=== PATIENT | female | born 1965 | race Caucasian/White ===

== ENCOUNTER 2017-06-19 19:58 | Observation (INO) | payer OTHER ==
--- NOTE | 2017-06-19 20:42 | ED PDOC ---
HPI: General Adult Time Seen by Provider: 06/19/17 20:28 Chief Complaint (Nursing): Weakness/Neurological Deficit Chief Complaint (Provider): headache, facial/hand numbness History Per: Patient, Family History/Exam Limitations: no limitations Onset/Duration Of Symptoms: Hrs (12) Current Symptoms Are (Timing): Better Additional History Per: Patient Additional Complaint(s): 52 y/o female no past medical history presents with facial and right hand numbness x 12 hours. Patient states she woke up with numbness to right hand, as the day progressed she noted similar feeling to whole face, which she described as feeling "swollen", with associated mild right-sided headache. Patient states numbness to right hand has improved. Denies fever, dizziness, extremity weakness, vision changes, chest pain, shortness of breath, palpitations, abdominal pain, leg pain/swelling. Patient notes similar numbness sensation 2 right heel on and off x 2 months. Past Medical History Reviewed: Historical Data, Nursing Documentation, Vital Signs Vital Signs: Last Vital Signs Temp 98 F 06/20/17 03:23 Pulse 59 L 06/20/17 03:23 Resp 18 06/20/17 03:23 BP 116/71 06/20/17 03:23 Pulse Ox 100 06/20/17 03:23 - Medical History PMH: No Chronic Diseases - Surgical History Surgical History: - Family History Family History: States: No Known Family Hx - Living Arrangements Living Arrangements: With Family - Social History Current smoker - smoking cessation education provided: No Alcohol: Social Drugs: Denies - Home Medications Home Medications: Ambulatory Orders Medication Instructions Recorded Gabapentin [Neurontin] 1 cap PO TID PRN 06/19/17 - Allergies Allergies/Adverse Reactions: Allergies Allergy/AdvReac Type Severity Reaction Status Date / Time Penicillins Allergy RASH Verified 06/19/17 20:08 Review of Systems ROS Statement: Except As Marked, All Systems Reviewed And Found Negative Neurological: Positive for: Numbness, Headache Physical Exam - Reviewed Nursing Documentation Reviewed: Yes Vital Signs Reviewed: Yes - Physical Exam Appears: Positive for: Well, Non-toxic, No Acute Distress Head Exam: Positive for: ATRAUMATIC, NORMAL INSPECTION, NORMOCEPHALIC Skin: Positive for: Normal Color Eye Exam: Positive for: Normal appearance ENT: Positive for: Normal ENT Inspection Cardiovascular/Chest: Positive for: Regular Rate, Rhythm Respiratory: Positive for: Normal Breath Sounds Gastrointestinal/Abdominal: Positive for: Normal Exam Back: Positive for: Normal Inspection Extremity: Positive for: Normal ROM Neurologic/Psych: Positive for: Alert, Oriented, Motor/Sensory Deficits ( decreased sensation RUE compared to LUE; FROM. Motor strength intact and equal b/l UE). Negative for: Facial Droop - Laboratory Results Result Diagrams: 06/19/17 21:00 06/19/17 21:00 - ECG ECG: Positive for: Viewed By Me (reviewed by ED attending) ECG Rhythm: Positive for: Sinus Rhythm O2 Sat by Pulse Oximetry: 98 Pulse Ox Interpretation: Normal - Radiology X-Ray: Viewed By Me X-Ray Interpretation: No Acute Disease - Progress ED Course And Treament: labs, ekg, ct head EXAM: CT Head Without Intravenous Contrast CLINICAL HISTORY: The patient is a 52 years female; Pain and signs and symptoms; Weakness, extremity and weakness, facial; Right; Headache; Headache not specified; Additional info: Headache, facial numbness. Sent phy. Doc. 06/19/2017 8:38 PM TECHNIQUE: Axial computed tomography images of the head/brain without intravenous contrast. All CT scans at this facility use one or more dose reduction techniques, viz.: automated exposure control; ma/kV adjustment per patient size (including targeted exams where dose is matched to indication; i.e. head); or iterative reconstruction technique. Coronal and sagittal reformatted images were created and reviewed. COMPARISON: No relevant prior studies available. FINDINGS: Brain: Areas of decreased attenuation noted within the periventricular and subcortical white matter likely related to chronic microangiopathic ischemic changes given the patient's stated age.Streak artifact limits evaluation of the skull base. No evidence of acute intracranial hemorrhage. Correlate clinically. Ventricles: Unremarkable. No ventriculomegaly. Bones/joints: See above. Soft tissues: Unremarkable. Sinuses: Unremarkable as visualized. No acute sinusitis. Mastoid air cells: Unremarkable as visualized. No mastoid effusion. IMPRESSION: Streak artifact limits evaluation of the skull base. No evidence of acute intracranial hemorrhage. CT can miss an acute nonhemorrhagic CVA. It should be noted that acute strokes may be initially radiologically occult on CT. If the patient is having persistent stroke like symptomatology, then MRI may be beneficial. Case discussed with Dr. Garcia, Neurologist on-call; recommends admission for MRA head/neck, asa 81mg PO dose, IV NS. Will consult in am. CAse discussed with FP resident on-call for admission. Disposition - Clinical Impression Clinical Impression: Headache, Paresthesias - Patient ED Disposition Is Patient to be Admitted: Yes - Disposition Disposition Time: 22:00 Condition: FAIR
[2017-06-19 21:10] LABS: BASO # 0.1 K/uL (0.0-0.2); BASO % 0.8 % (0.0-2.0); EOS # 0.2 K/uL (0.0-0.7); EOS % 2.5 % (0.0-4.0); HEMATOCRIT 43.2 % (34.0-47.0); LYMPH # 2.5 K/uL (1.0-4.3); LYMPH % 36.6 % (20.0-40.0); MEAN CELL VOLUME 91.6 fl (81.0-99.0); MEAN CORPUSCULAR HEMOGLOBIN 30.3 pg (27.0-31.0); MEAN CORPUSCULAR HGB CONC 33.1 g/dL (33.0-37.0); MEAN PLATELET VOLUME 9.6 fl (7.2-11.7); MONO # 0.5 K/uL (0.0-0.8); MONO % 7.6 % (0.0-10.0); NEUT # 3.6 K/uL (1.8-7.0); NEUT % 52.5 % (50.0-75.0); RED CELL DISTRIBUTION WIDTH 13.7 % (11.5-14.5); WHITE BLOOD COUNT 6.9 K/uL (4.8-10.8)
[2017-06-19 21:18] LABS: ALB/GLOB RATIO 1.4 (1.0-2.1); ALKALINE PHOSPHATASE 94 U/L (38-126); ALT/SGPT 36 U/L (9-52); AST/SGOT 25 U/L (14-36); BILIRUBIN,TOTAL 0.2 mg/dl (0.2-1.3); BLOOD UREA NITROGEN 8 mg/dl (7-17); CALCIUM 9.2 mg/dL (8.4-10.2); CARBON DIOXIDE 27 mmol/L (22-30); CHLORIDE 105 mmol/L (98-107); GFR AFRICAN-AMERICAN > 60; GLUCOSE,RANDOM 98 mg/dL (65-105); POTASSIUM 3.9 MMOL/L (3.6-5.0); SODIUM 142 mmol/l (132-148); TOTAL PROTEIN 7.7 G/DL (6.3-8.2)
[2017-06-19] MEDS ORDERED: Sodium Chloride 0.9% 1,000 ML IV STA (22:06)
--- NOTE | 2017-06-19 23:13 | CP.PCM.HP ---
History of Present Illness - History of Present Illness History of Present Illness: CC: Right hand numbness 52F right-hand dominant p/w onset of RIGHT hand feeling "asleep" since about 7am this morning, only the hand and denies any loss of strength. She reports that later in the day she began feeling that her RIGHT side of the face felt "asleep" but denies similar feeling in the shoulder/arm of affected side. With this facial numbness she also had amina-oral numbness/tingling but denies visual/ hearing changes or speech abnormality. She says she had a prior incident that involved her RIGHT heel for which she was prescribed Gabapentin 300mg, PO, TID and it gradually improved. Currently her symptoms have improved "a little". Otherwise, she denies SOB, chest pain/palpitations, abd pain, constipation/ diarrhea, dysuria PMH: None PSH: Lasik eye surgery, C-sxn x1, Rt breast cystectomy Denies smoke/etOH/drugs SCARLETT: Vitamin D, Gabapentin ALL: PCN (hives) ED COURSE VSS: 36.7- 60- 154/77- 18- 98% CBC: WNL CMP: WNL Head CT: no acute ICH or mass effect EKG: NSR CXR: pending official read, but no acute processes Neuro Consult (Dr Rdz): MRA Head/Neck, 81mg ASA Present on Admission - Present on Admission Any Indicators Present on Admission: No Review of Systems - Review of Systems All systems: reviewed and no additional remarkable complaints except - Constitutional Constitutional: Headache - Neurological Neurological: Numbness (RIGHT hand, RIGHT > LEFT face), Tingling (perioral and nose) Past Patient History - Past Social History Alcohol: Social Drugs: Denies - PSYCHIATRIC Hx Substance Use: No - SURGICAL HISTORY Hx Surgeries: No Meds Allergies/Adverse Reactions: Allergies Allergy/AdvReac Type Severity Reaction Status Date / Time Penicillins Allergy RASH Verified 06/19/17 20:08 Physical Exam - Constitutional Appears: Well, Non-toxic, No Acute Distress - Head Exam Head Exam: ATRAUMATIC, NORMAL INSPECTION - Eye Exam Eye Exam: EOMI, Normal appearance, PERRL. absent: Nystagmus Pupil Exam: PERRL - ENT Exam ENT Exam: Mucous Membranes Moist, Normal Exam - Neck Exam Neck exam: Positive for: Full Rom, Normal Inspection. Negative for: Lymphadenopathy - Respiratory Exam Respiratory Exam: Clear to Auscultation Bilateral, NORMAL BREATHING PATTERN. absent: Rhonchi, Wheezes - Cardiovascular Exam Cardiovascular Exam: REGULAR RHYTHM, +S1, +S2 - GI/Abdominal Exam GI & Abdominal Exam: Normal Bowel Sounds, Soft. absent: Tenderness - Extremities Exam Extremities exam: Positive for: full ROM, normal capillary refill, normal inspection, pedal pulses present. Negative for: pedal edema - Neurological Exam Neurological exam: Alert, CN II-XII Intact, Normal Gait, Oriented x3, Reflexes Normal - Psychiatric Exam Psychiatric exam: Normal Affect, Normal Mood - Skin Skin Exam: Dry, Intact, Normal Color, Warm Results - Vital Signs Recent Vital Signs: Last Vital Signs Temp 36.7 C 06/19/17 20:09 Pulse 60 06/19/17 20:09 Resp 18 06/19/17 20:09 BP 154/77 H 06/19/17 20:09 Pulse Ox 98 06/19/17 22:13 - Labs Result Diagrams: 06/19/17 21:00 06/19/17 21:00 Labs: Laboratory Results - last 24 hr 06/19/17 06/19/17 21:00 21:00 WBC 6.9 RBC 4.72 Hgb 14.3 Hct 43.2 MCV 91.6 MCH 30.3 MCHC 33.1 RDW 13.7 Plt Count 201 MPV 9.6 Neut % (Auto) 52.5 Lymph % (Auto) 36.6 [place] % (Auto) 7.6 Eos % (Auto) 2.5 Baso % (Auto) 0.8 Neut # 3.6 Lymph # 2.5 [place] # 0.5 Eos # 0.2 Baso # 0.1 Sodium 142 Potassium 3.9 Chloride 105 Carbon Dioxide 27 Anion Gap 15 BUN 8 Creatinine 0.6 L Est GFR ( Amer) > 60 Est GFR (Non-Af Amer) > 60 Random Glucose 98 Calcium 9.2 Total Bilirubin 0.2 AST 25 ALT 36 Alkaline Phosphatase 94 Total Protein 7.7 Albumin 4.5 Globulin 3.2 Albumin/Globulin Ratio 1.4 Assessment & Plan (1) Neuropathy Assessment and Plan: Etiology unclear, but given the absence of radicular symptoms, dermatomal distribution, or cerebrovascular region distribution would keep MS, DM, possibly B12 deficiency in the differential. - Neurology Consult (Dr Rdz): Will see 06/20/2017, MRA Head/Neck - VitB12, ESR/CRP, RPR, ANCA, Lipid Panel, TSH, HgbA1C Status: Acute (2) Elevated blood pressure reading Assessment and Plan: No comparable readings. - Monitor BP - Start medication as indicated Status: Acute (3) DVT prophylaxis Assessment and Plan: Lovenox 40mg, SC, Daily Status: Acute
[2017-06-20 01:42] LABS: THYROID STIMULATING HORMONE 2.83 mIU/ML (0.46-4.68)
[2017-06-20 04:43] VITALS: O2SAT 98
[2017-06-20] MEDS ORDERED: Influenza Vaccine 18yr & older 0.5 ML/45 MCG SYR IM ONE (06:00)
--- NOTE | 2017-06-20 08:19 | CP.PCM.PN ---
Subjective - Date & Time of Evaluation Date of Evaluation: 06/20/17 Time of Evaluation: 07:15 - Subjective Subjective: Pt seen and examined at bedside today. She was resting comfortably. Symptoms: R foot parasthesia: plantar aspect, began 2 months ago, intermittent ( day on day off) occurring intermittently, exacerbated with prolonged ambulation , denies loss of function. R hand parasthesia began yesterday around 7 AM independent of other symptoms. Symptoms lasted briefly for a few minutes and spontaneously resolved. Denies loss of hand function. Denies associated headaches. generalized Facial parasthesia with no focal origin: started at yesterday afternoon independent of other symptoms. Symptoms also spontaneously resolved. no asociated headache, nausea, vomiting, dizziness, weakness, blurred vision. Denies recent/2 month history of stressors, illness, changes in life, travel outside of the country. Denies sick contacts. Shares of PCP at [address] [place] [address]; last visit in April: shares of reviewing bloodwork and wnl. Denies personal history of: neurological, psychiatric symptoms. 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 Objective - Vital Signs/Intake and Output Vital Signs (last 24 hours): Temp Pulse Resp BP Pulse Ox 98 F 59 L 18 116/71 98 06/20/17 03:23 06/20/17 03:23 06/20/17 03:23 06/20/17 03:23 06/20/17 04:43 - Medications Medications: Current Medications Enoxaparin Sodium (Lovenox) 40 mg SC DAILY GERARDO PRN Reason: Protocol - Labs Labs: 06/19/17 21:00 06/19/17 21:00 - Constitutional Appears: Well, No Acute Distress - Head Exam Head Exam: ATRAUMATIC, NORMAL INSPECTION Additional comments: No facial droop. - Eye Exam Eye Exam: EOMI, Normal appearance, PERRL Pupil Exam: NORMAL ACCOMODATION, PERRL - ENT Exam ENT Exam: Mucous Membranes Moist, Normal Exam - Neck Exam Neck Exam: Full ROM, Normal Inspection - Respiratory Exam Respiratory Exam: Clear to Ausculation Bilateral, NORMAL BREATHING PATTERN - Cardiovascular Exam Cardiovascular Exam: REGULAR RHYTHM, +S2 - GI/Abdominal Exam GI & Abdominal Exam: Soft, Normal Bowel Sounds - Extremities Exam Extremities Exam: Full ROM, Normal Inspection - Back Exam Back Exam: NORMAL INSPECTION - Neurological Exam Neurological Exam: Alert, Awake, CN II-XII Intact, Normal Gait, Oriented x3 Neuro motor strength exam: Left Upper Extremity: 5, Right Upper Extremity: 5, Left Lower Extremity: 5, Right Lower Extremity: 5 Additional comments: Ambulating well with no abnormal gait - Psychiatric Exam Psychiatric exam: Normal Affect, Normal Mood - Skin Skin Exam: Normal Color, Warm Assessment and Plan - Assessment and Plan (Free Text) Assessment: Pt is AAOx3. Asymptomatic for presenting symptoms/concerns. Plan: 1) R foot, R hand, Facial parasthesias -currently asymptomatic -Continue ASA 81mg -Consulted Dr. Rdz: pending MRA head and neck -Pending CRP, HbA1c, ANCA, RPR, ECG, UPT, MAXIMINO, HIV 2) DVT prophylaxis -Lovenox 40mg -Ambulating Earl Monaslve, PGY1
--- NOTE | 2017-06-20 08:37 | CT ---
PROCEDURE: CT HEAD WITHOUT CONTRAST. HISTORY: headache, facial numbness COMPARISON: None available. TECHNIQUE: Axial computed tomography images were obtained through the head/brain without intravenous contrast. Radiation dose: Total exam DLP = 831 mGy-cm. This CT exam was performed using one or more of the following dose reduction techniques: Automated exposure control, adjustment of the mA and/or kV according to patient size, and/or use of iterative reconstruction technique. FINDINGS: HEMORRHAGE: No intracranial hemorrhage. BRAIN: No mass effect or edema. Scattered focal lucencies in the subcortical and periventricular white matter suggestive for chronic microvascular ischemic change. Small focal hypodensity measuring 4.9 millimeters seen within the right inferior basal ganglia best seen on series 4, image 20. This may represent a small lacunar infarct. Correlation with MRI may be helpful to better determine chronicity if clinically indicated. VENTRICLES: Unremarkable. No hydrocephalus. CALVARIUM: Unremarkable. PARANASAL SINUSES: Unremarkable as visualized. No significant inflammatory changes. MASTOID AIR CELLS: Unremarkable as visualized. No inflammatory changes. OTHER FINDINGS: Streak artifact limits evaluation of the skullbase. IMPRESSION: Streak artifact limits evaluation of the skullbase. Small focal hypodensity measuring 4.9 millimeters seen within the right inferior basal ganglia best seen on series 4, image 20. This may represent a small lacunar infarct. Correlation with MRI may be helpful to better determine chronicity if clinically indicated. Chronic microvascular ischemic change. No evidence of acute intracranial hemorrhage. If focal neurologic deficit persists, consider further evaluation with MRI. These findings were preliminarily reported at 9:23 p.m. on 06/19/[address] Verna Cortes from [facility].
[2017-06-20] MEDS ORDERED: Enoxaparin 40 mg Syringe SC SCH (09:00)
--- NOTE | 2017-06-20 10:35 | MRI ---
PROCEDURE: MR Angiography of the neck without contrast HISTORY: headache, facial/right hand paresthesia COMPARISON: None available. TECHNIQUE: 3D [id number] angiography of the neck was performed. Rotating maximum intensity projection images of the cervical carotid and vertebral arteries were generated. The origins of the common carotid arteries were not visualized, which is a limitation inherent to the non-contrast time of flight technique. FINDINGS: RIGHT CAROTID ARTERIES: Common Carotid Artery: Normal. Carotid Bifurcation: Normal. Internal Carotid Artery:Normal. External Carotid Artery (proximal branches): Normal. LEFT CAROTID ARTERIES: Common Carotid Artery: Normal. Carotid Bifurcation: Normal. Internal Carotid Artery:Normal. External Carotid Artery (proximal branches): Normal. VERTEBRAL ARTERIES: Right Vertebral Artery: Normal. Left Vertebral Artery: Normal. OTHER FINDINGS: None. IMPRESSION: Normal MR Angiography of the neck.
--- NOTE | 2017-06-20 10:35 | MRI ---
PROCEDURE: Magnetic Resonance Angiography Brain HISTORY: headache, facial, right hand paresthesia COMPARISON: None available. TECHNIQUE: 3D time of flight MR angiography of the intracranial arteries was performed. Rotating maximum intensity projection images were generated. FINDINGS: INTERNAL CAROTID ARTERIES: Unremarkable. The skull base, petrous, cavernous and supraclinoid segments are bilaterally widely patient. ANTERIOR CEREBRAL ARTERIES: Unremarkable. A1 and A2 segments are widely patent. Smaller distal branches unremarkable, as visualized. MIDDLE CEREBRAL ARTERIES: Unremarkable. M1 and M2 segments are widely patent. Perisylvian branches grossly symmetric. POSTERIOR CIRCULATION: Basilar Artery: Unremarkable. Distal Vertebral Arteries: Unremarkable. Posterior Cerebral Arteries: Unremarkable. Posterior Inferior Cerebellar Arteries: The right PICA is unremarkable. 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 OTHER FINDINGS: None. IMPRESSION: Unremarkable MR angiography of the brain.
--- NOTE | 2017-06-20 11:24 | RAD ---
HISTORY: admit COMPARISON: No prior. TECHNIQUE: Chest PA and lateral FINDINGS: LUNGS: The lungs are hyperinflated and there is peribronchial thickening with chronic changes in both lungs. No lobar pneumonia. PLEURA: No significant pleural effusion identified. No pneumothorax apparent. CARDIOVASCULAR: Normal. OSSEOUS STRUCTURES: No significant abnormalities. VISUALIZED UPPER ABDOMEN: Normal. OTHER FINDINGS: None. IMPRESSION: No active pulmonary disease. COPD.
[2017-06-20 12:18] VITALS: BP 109/69; PULSE 60; RESP 18; TEMP 98.1
--- NOTE | 2017-06-20 12:30 | CP.PCM.CON ---
History of Present Illness - History of Present Illness History of Present Illness: Mrs. Reddy is a 52-year-old woman with no significant past medical history, but has had previous episodes of neurologic changes that included right facial numbness, right hand numbness and headache. She was given gabapentin for this in the past and it helped. She developed similar symptoms yesterday. Today, her symptoms are gone. She did not have headache, numbness or changes in mental status. No difficulty with speech or vision, no weakness or other sensory changes. Review of Systems - Review of Systems All systems: reviewed and no additional remarkable complaints except Past Patient History - Past Medical History & Family History Past Medical History?: Yes - Past Social History Alcohol: Social Drugs: Denies - CARDIAC Hx Cardiac Disorders: No - PULMONARY Hx Respiratory Disorders: No - NEUROLOGICAL Hx Neurological Disorder: No - HEENT Hx HEENT Problems: No - RENAL Hx Chronic Kidney Disease: No - ENDOCRINE/METABOLIC Hx Endocrine Disorders: No - HEMATOLOGICAL/ONCOLOGICAL Hx Blood Disorders: No Hx AIDS: No Hx Human Immunodeficiency Virus (HIV): No - INTEGUMENTARY Hx Dermatological Problems: No - MUSCULOSKELETAL/RHEUMATOLOGICAL Hx Musculoskeletal Disorders: No Hx Falls: No - GASTROINTESTINAL Hx Gastrointestinal Disorders: No - GENITOURINARY/GYNECOLOGICAL Hx Genitourinary Disorders: No - PSYCHIATRIC Hx Psychophysiologic Disorder: No Hx Substance Use: No - SURGICAL HISTORY Hx Surgeries: Yes Hx Section: Yes (x1) Hx Eye Surgery: Yes (Lasik) Other/Comment: Right breast cystectomy - ANESTHESIA Hx Anesthesia: Yes Hx Anesthesia Reactions: No Meds Allergies/Adverse Reactions: Allergies Allergy/AdvReac Type Severity Reaction Status Date / Time Penicillins Allergy RASH Verified 06/19/17 20:08 - Medications Medications: Current Medications Enoxaparin Sodium (Lovenox) 40 mg SC DAILY GERARDO PRN Reason: Protocol Last Admin: 06/20/17 09:43 Dose: 40 mg Physical Exam - Constitutional Appears: Well - Head Exam Head Exam: ATRAUMATIC, NORMAL INSPECTION, NORMOCEPHALIC - Eye Exam Eye Exam: EOMI, Normal appearance, PERRL - ENT Exam ENT Exam: Mucous Membranes Moist, Normal Exam - Neck Exam Neck exam: Positive for: Normal Inspection - Respiratory Exam Respiratory Exam: Clear to Auscultation Bilateral, NORMAL BREATHING PATTERN - Cardiovascular Exam Cardiovascular Exam: REGULAR RHYTHM, +S1, +S2 - GI/Abdominal Exam GI & Abdominal Exam: Normal Bowel Sounds, Soft. absent: Tenderness - Rectal Exam Rectal Exam: Deferred - Extremities Exam Extremities exam: Positive for: normal inspection - Back Exam Back exam: NORMAL INSPECTION - Neurological Exam Neurological exam: Alert, CN II-XII Intact, Normal Gait, Oriented x3, Reflexes Normal - Psychiatric Exam Psychiatric exam: Normal Affect, Normal Mood - Skin Skin Exam: Dry, Intact, Normal Color, Warm Results - Vital Signs Recent Vital Signs: Last Vital Signs Temp 98.2 F 06/20/17 08:00 Pulse 66 06/20/17 08:00 Resp 20 06/20/17 08:00 BP 111/71 06/20/17 08:00 Pulse Ox 98 06/20/17 08:00 - Labs Result Diagrams: 06/19/17 21:00 06/19/17 21:00 Labs: Laboratory Results - last 24 hr 06/19/17 06/19/17 06/19/17 21:00 21:00 21:16 WBC 6.9 RBC 4.72 Hgb 14.3 Hct 43.2 MCV 91.6 MCH 30.3 MCHC 33.1 RDW 13.7 Plt Count 201 MPV 9.6 Neut % (Auto) 52.5 Lymph % (Auto) 36.6 [place] % (Auto) 7.6 Eos % (Auto) 2.5 Baso % (Auto) 0.8 Neut # 3.6 Lymph # 2.5 [place] # 0.5 Eos # 0.2 Baso # 0.1 ESR Sodium 142 Potassium 3.9 Chloride 105 Carbon Dioxide 27 Anion Gap 15 BUN 8 Creatinine 0.6 L Est GFR ( Amer) > 60 Est GFR (Non-Af Amer) > 60 POC Glucose (mg/dL) 90 Random Glucose 98 Calcium 9.2 Total Bilirubin 0.2 AST 25 ALT 36 Alkaline Phosphatase 94 C-React Prot High Sens Total Protein 7.7 Albumin 4.5 Globulin 3.2 Albumin/Globulin Ratio 1.4 Triglycerides Cholesterol LDL Cholesterol Direct HDL Cholesterol Vitamin B12 TSH 3rd Generation 06/19/17 06/20/17 06/20/17 23:55 00:40 00:40 WBC RBC Hgb Hct MCV MCH MCHC RDW Plt Count MPV Neut % (Auto) Lymph % (Auto) [place] % (Auto) Eos % (Auto) Baso % (Auto) Neut # Lymph # [place] # Eos # Baso # ESR 10 Sodium Potassium Chloride Carbon Dioxide Anion Gap BUN Creatinine Est GFR ( Amer) Est GFR (Non-Af Amer) POC Glucose (mg/dL) Random Glucose Calcium Total Bilirubin AST ALT Alkaline Phosphatase C-React Prot High Sens 2.46 Total Protein Albumin Globulin Albumin/Globulin Ratio Triglycerides Cholesterol LDL Cholesterol Direct HDL Cholesterol Vitamin B12 934 H TSH 3rd Generation 06/20/17 00:40 WBC RBC Hgb Hct MCV MCH MCHC RDW Plt Count MPV Neut % (Auto) Lymph % (Auto) [place] % (Auto) Eos % (Auto) Baso % (Auto) Neut # Lymph # [place] # Eos # Baso # ESR Sodium Potassium Chloride Carbon Dioxide Anion Gap BUN Creatinine Est GFR ( Amer) Est GFR (Non-Af Amer) POC Glucose (mg/dL) Random Glucose Calcium Total Bilirubin AST ALT Alkaline Phosphatase C-React Prot High Sens Total Protein Albumin Globulin Albumin/Globulin Ratio Triglycerides 89 Cholesterol 143 LDL Cholesterol Direct 73 HDL Cholesterol 55 Vitamin B12 TSH 3rd Generation 2.83 - Imaging and Cardiology MRI - head Status: Image reviewed by me, Report reviewed by me (Normal vasculature. No acute findings. ) Assessment & Plan (1) Headache Assessment and Plan: With recurrent neurologic deficits, this may represent a complicated migraine headache. Currently, she does not have symptoms. For prophylaxis, consider magnesium oxide 400 mg BID. Status: Resolved (2) Neuropathy Status: Resolved
--- NOTE | 2017-06-20 15:34 | CP.PCM.DIS ---
Provider - Provider Date of Admission: 06/20/17 00:02 Attending physician: Brandy Hobbs MD Time Spent in preparation of Discharge (in minutes): 20 Hospital Course - Lab Results Lab Results: Most Recent Lab Values WBC 6.9 K/uL (4.8-10.8) 06/19/17 21:00 RBC 4.72 Mil/uL (3.80-5.20) 06/19/17 21:00 Hgb 14.3 g/dL (12.0-16.0) 06/19/17 21:00 Hct 43.2 % (34.0-47.0) 06/19/17 21:00 MCV 91.6 fl (81.0-99.0) 06/19/17 21:00 MCH 30.3 pg (27.0-31.0) 06/19/17 21:00 MCHC 33.1 g/dL (33.0-37.0) 06/19/17 21:00 RDW 13.7 % (11.5-14.5) 06/19/17 21:00 Plt Count 201 K/uL (130-400) 06/19/17 21:00 MPV 9.6 fl (7.2-11.7) 06/19/17 21:00 Neut % (Auto) 52.5 % (50.0-75.0) 06/19/17 21:00 Lymph % (Auto) 36.6 % (20.0-40.0) 06/19/17 21:00 Irwin % (Auto) 7.6 % (0.0-10.0) 06/19/17 21:00 Eos % (Auto) 2.5 % (0.0-4.0) 06/19/17 21:00 Baso % (Auto) 0.8 % (0.0-2.0) 06/19/17 21:00 Neut # 3.6 K/uL (1.8-7.0) 06/19/17 21:00 Lymph # 2.5 K/uL (1.0-4.3) 06/19/17 21:00 Irwin # 0.5 K/uL (0.0-0.8) 06/19/17 21:00 Eos # 0.2 K/uL (0.0-0.7) 06/19/17 21:00 Baso # 0.1 K/uL (0.0-0.2) 06/19/17 21:00 ESR 10 mm/hr (0-30) 06/20/17 00:40 Sodium 142 mmol/l (132-148) 06/19/17 21:00 Potassium 3.9 MMOL/L (3.6-5.0) 06/19/17 21:00 Chloride 105 mmol/L (98-107) 06/19/17 21:00 Carbon Dioxide 27 mmol/L (22-30) 06/19/17 21:00 Anion Gap 15 (10-20) 06/19/17 21:00 BUN 8 mg/dl (7-17) 06/19/17 21:00 Creatinine 0.6 mg/dL (0.7-1.2) L 06/19/17 21:00 Est GFR ( Amer) > 60 06/19/17 21:00 Est GFR (Non-Af Amer) > 60 06/19/17 21:00 POC Glucose (mg/dL) 90 mg/dL (65-110) 06/19/17 21:16 Random Glucose 98 mg/dL (65-105) 06/19/17 21:00 Hemoglobin A1c 5.8 % (4.2-6.5) 06/20/17 00:40 Calcium 9.2 mg/dL (8.4-10.2) 06/19/17 21:00 Total Bilirubin 0.2 mg/dl (0.2-1.3) 06/19/17 21:00 AST 25 U/L (14-36) 06/19/17 21:00 ALT 36 U/L (9-52) 06/19/17 21:00 Alkaline Phosphatase 94 U/L (38-126) 06/19/17 21:00 C-React Prot High Sens 2.46 mg/L (1.00-3.00) 06/20/17 00:40 Total Protein 7.7 G/DL (6.3-8.2) 06/19/17 21:00 Albumin 4.5 g/dL (3.5-5.0) 06/19/17 21:00 Globulin 3.2 gm/dL (2.2-3.9) 06/19/17 21:00 Albumin/Globulin Ratio 1.4 (1.0-2.1) 06/19/17 21:00 Triglycerides 89 mg/DL (0-149) 06/20/17 00:40 Cholesterol 143 mg/dL (0-199) 06/20/17 00:40 LDL Cholesterol Direct 73 mg/dL (0-129) 06/20/17 00:40 HDL Cholesterol 55 MG/DL (30-70) 06/20/17 00:40 Vitamin B12 934 pg/mL (239-931) H 06/19/17 23:55 TSH 3rd Generation 2.83 mIU/ML (0.46-4.68) 06/20/17 00:40 - Hospital Course Hospital Course: 52 yo F presented with multiple parasthesias: R plantar foot, R hand and generalized facial. Spontaneous resolution of symptoms. Per neurology: start ASA 81. Discharge home with Magnesium Oxide 400 mg 1 po BID #60 Discharge Exam - Head Exam Head Exam: ATRAUMATIC, NORMAL INSPECTION, NORMOCEPHALIC - Eye Exam Eye Exam: EOMI, Normal appearance, PERRL Pupil Exam: NORMAL ACCOMODATION, PERRL - ENT Exam ENT Exam: Mucous Membranes Moist, Normal Exam - Neck Exam Neck exam: Full Rom, Normal Inspection - Respiratory Exam Respiratory Exam: Clear to PA & Lateral, NORMAL BREATHING PATTERN, UNREMARKABLE - Cardiovascular Exam Cardiovascular Exam: REGULAR RHYTHM, +S1, +S2 - GI/Abdominal Exam GI & Abdominal Exam: Normal Bowel Sounds, Soft - Extremities Exam Extremities exam: full ROM, normal inspection - Back Exam Back exam: FULL ROM - Neurological Exam Neurological exam: Alert, CN II-XII Intact, Normal Gait, Oriented x3, Reflexes Normal - Psychiatric Exam Psychiatric exam: Normal Affect, Normal Mood - Skin Skin Exam: Dry, Normal Color Discharge Plan - Discharge Medications Prescriptions: Gabapentin [Neurontin] 1 cap PO TID PRN #1 cap PRN Reason: pain Magnesium Oxide [Mag-Ox] 400 mg PO BID #60 tab - Follow Up Plan Condition: FAIR Disposition: HOME/ ROUTINE Instructions: Migraine Headache (DC) Additional Instructions: Follow up with your PCP in [place] in 1-2 weeks to discuss hospital course. Should you experience loss of function to any body part, loss of consciousness, fever, inability to walk, seek immediate medical attention. Referrals: Frankie Rdz MD [Medical Doctor] -
--- NOTE | 2017-06-21 10:20 | CARD ---
APPROVED REPORT EKG Measurement Heart [id number] <Conclusion> Normal sinus rhythm Normal ECG
== END 2017-06-20 15:50 | disposition home or self-care (01) ==
LOC: H.ER 19:58 → H.ERHOLD 06-20 00:02 → INTOOBSV 06-20 00:02 → H.TEL 06-20 03:07
PROVIDERS: ADMIT Family Medicine Geriatric Medicine; ATTEND Family Medicine Geriatric Medicine
DX: R51 Headache (principal); R20.2 Paresthesia of skin; R03.0 Elevated blood-pressure reading, without diagnosis of hypertension; G62.9 Polyneuropathy, unspecified; Z88.0 Allergy status to penicillin; Z23 Encounter for immunization
CPT/HCPCS: 70450; 70544; 70547; 71020; 80053; 80061; 81025; 82607; 82948; 83036; 84443; 85025; 85651; 86021; 86039; 86140; 86592; 86803; 90471; 93005; 99282; G0378; J1650; J7040; Q2035

== ENCOUNTER 2018-02-16 21:49 | Emergency (ER) | payer SELFPAY ==
[2018-02-16 22:17] VITALS: BMI 25.2
[2018-02-16 22:20] VITALS: O2SAT 100
[2018-02-16 22:49] LABS: URINE BILIRUBIN NEGATIVE (NEGATIVE); URINE BLOOD NEGATIVE (NEGATIVE); URINE CLARITY CLEAR (Clear); URINE COLOR STRAW (YELLOW); URINE GLUCOSE (UA) NEG (Normal); URINE LEUKOCYTE ESTERASE SMALL Leu/uL (Negative); URINE PROTEIN NEGATIVE (NEGATIVE); URINE UROBILINOGEN 0.2-1.0 mg/dL (0.2-1.0)
[2018-02-16 23:43] VITALS: BP 118/75; PULSE 69; RESP 14; TEMP 98
--- NOTE | 2018-02-17 00:04 | ED PDOC ---
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 Patient denies any urinary symptoms, fever, abdominal pain, vaginal bleeding or discharge. She reports 3 vaginal deliveries as well as one . Patient offers no other medical complaints at this time. PMD: none provided Past Medical History Reviewed: Historical Data, Nursing Documentation, Vital Signs Vital Signs: Last Vital Signs Temp 98 F 02/16/18 23:30 Pulse 69 02/16/18 23:30 Resp 14 02/16/18 23:30 BP 118/75 02/16/18 23:30 Pulse Ox 100 02/16/18 23:30 - Medical History PMH: Denies: HIV, Chronic Kidney Disease - Surgical History Surgical History: - Family History Family History: States: Unknown Family Hx - Social History Current smoker - smoking cessation education provided: No Alcohol: None Drugs: Denies - Home Medications Home Medications: Ambulatory Orders Medication Instructions Recorded Gabapentin [Neurontin] 1 cap PO TID PRN #1 cap 06/20/17 Magnesium Oxide [Mag-Ox] 400 mg PO BID #60 tab 06/20/17 Nitrofurantoin Macrocrystals 100 mg PO BID #14 cap 02/16/18 [Macrobid] - Allergies Allergies/Adverse Reactions: Allergies Allergy/AdvReac Type Severity Reaction Status Date / Time Penicillins Allergy RASH Verified 02/16/18 22:17 Review of Systems ROS Statement: Except As Marked, All Systems Reviewed And Found Negative Constitutional: Negative for: Fever Gastrointestinal: Negative for: Abdominal Pain Genitourinary Female: Positive for: Other (vaginal pain). Negative for: Vaginal Discharge, Vaginal Bleeding Physical Exam - Reviewed Nursing Documentation Reviewed: Yes Vital Signs Reviewed: Yes - Physical Exam Appears: Positive for: Well, Non-toxic, No Acute Distress Head Exam: Positive for: ATRAUMATIC, NORMAL INSPECTION, NORMOCEPHALIC Skin: Positive for: Normal Color Eye Exam: Positive for: Normal appearance Cardiovascular/Chest: Positive for: Regular Rate, Rhythm Respiratory: Positive for: Normal Breath Sounds Gastrointestinal/Abdominal: Positive for: Normal Exam, Soft. Negative for: Tenderness Pelvic Exam: Positive for: External Exam Normal, Other (vaginal prolapse noted on exam, female technical support representative was present during the entire exam). Negative for: Blood, Discharge Back: Positive for: Normal Inspection Neurologic/Psych: Positive for: Alert, Oriented. Negative for: Motor/Sensory Deficits - ECG O2 Sat by Pulse Oximetry: 100 (RA) Pulse Ox Interpretation: Normal Medical Decision Making Medical Decision Making: Time: 22:38 Impression: Vaginal Prolapse Plan: --Urine Culture --Urinalysis UA (+) UTI. Urine cx sent. Diagnosis of vaginal prolapse and UTI d/w the patient and her . Advised to follow up with OBGYN without fail for further evaluation. Advised regarding diagnosis and all questions were answered. Return to the emergency room at any time for any new or worsening symptoms. Patient states she fully agrees with and understands discharge instructions. States that she agrees with the plan and disposition. Verbalized and repeated discharge instructions and plan. I have given the patient opportunity to ask any additional questions. Scribe Attestation: Documented by, Faiza Castellanos acting as a scribe for Celine Vang PA-C. Provider Scribe Attestation: All medical record entries made by the Scribe were at my direction and personally dictated by me. I have reviewed the chart and agree that the record accurately reflects my personal performance of the history, physical exam, medical decision making, and the department course for this patient. I have also personally directed, reviewed, and agree with the discharge instructions and disposition. Disposition - Clinical Impression Clinical Impression: Vaginal prolapse, UTI (urinary tract infection) - Patient ED Disposition Is Patient to be Admitted: No Counseled Patient/Family Regarding: Studies Performed, Diagnosis, Need For Followup, Rx Given - Disposition Referrals: [facility] [Outside] Abdon Strickland [Staff Provider] - Disposition: Routine/Home Disposition Time: 23:30 Condition: STABLE Additional Instructions: Thank you for letting us take care of you today. You were treated for vaginal prolapse, UTI. The emergency medical care you received today was directed at your acute symptoms. If you were prescribed any medication, please fill it and take as directed. It may take several days for your symptoms to resolve. Return to the Emergency Department if your symptoms worsen, do not improve, or if you have any other problems. Please contact your doctor in 2 days for re-evaluation and follow up / or call one of the physicians/clinics you have been referred to that are listed on the Patient Visit Information form that is included in your discharge packet. Bring any paperwork you were given at discharge with you along with any medications you are taking to your follow up visit. Our treatment cannot replace ongoing medical care by a primary care provider (PCP) outside of the emergency department. Thank you for allowing the Critical access hospital team to be part of your care today. If you had a urine culture test done : We will call you regarding any positive results Hugh por dejarnos atenderlo hoy. Te trataron por prolapso vaginal, ITU. La atencin mdica de emergencia que recibi hoy estaba dirigida a monique sntomas agudos. Si le prescribieron algn medicamento, llnelo y tome segn las indicaciones. Monique sntomas pueden tardar varios hooker en resolverse. Regrese al Departamento de Emergencia si monique sntomas empeoran, no mejoran o si tiene alg n otro problema. Comunquese con figueroa mdico en 2 hooker para paolo reevaluacin y seguimiento / o llame a romana de los mdicos / clnicas a los que vaughn referido y que figura en el formulario de Informacin de visitas del paciente que se incluye en figueroa paquete de terrence. Traiga todos los documentos que recibi al momento del terrence junto con los medicamentos que est tomando en figueroa visita de seguimiento. Nuestro tratamiento no puede reemplazar la atencin mdica en curso por parte de un proveedor de atencin primaria (PCP) fuera del departamento de emergencias. Hugh por permitir que el equipo de [facility] sea parte de figueroa cuidado hoy. Si se realiz paolo prueba de cultivo de orina: lo llamaremos para informarle cualquier resultado positivo Prescriptions: Nitrofurantoin Macrocrystals [Macrobid] 100 mg PO BID #14 cap Instructions: Vaginal Prolapse, Urinary Tract Infection, Adult (DC) Forms: [employer] (Thai) Print Language: GUINEAN - PA / MEAT TEAM LEAD / Resident Statement / has reviewed & agrees with the documentation as recorded.
== END 2018-02-16 23:40 | disposition home or self-care (01) ==
LOC: H.ER 21:49
DX: N39.0 Urinary tract infection, site not specified (principal); N81.10 Cystocele, unspecified; Z88.0 Allergy status to penicillin

== ENCOUNTER 2018-07-08 20:24 | Emergency (ER) | payer OTHER ==
[2018-07-08 20:24] VITALS: BMI 25.2
[2018-07-08 20:57] VITALS: BP 129/72; TEMP 98.3
[2018-07-08 21:00] VITALS: PULSE 78; RESP 18; O2SAT 99
--- NOTE | 2018-07-08 22:13 | ED PDOC ---
HPI: Skin/Bite Injury Time Seen by Provider: 07/08/18 21:46 Chief Complaint (Nursing): Abnormal Skin Integrity Chief Complaint (Provider): Rash, sore throat History Per: Patient History/Exam Limitations: no limitations Onset/Duration Of Symptoms: Days Current Symptoms Are (Timing): Still Present Quality Of Symptoms: Itching Additional Complaint(s): 53 yo female with no medical problems presents for evaluation of itchy rash since yesterday. Pt denies new medication, lotion, detergent, etc. Pt denies SOB, swelling in or around mouth. Pt denies similar in the past. Pt states she was also having sore throat and nasal congestion. Pt reports yellow nasal drainage today. No fever/chills. Past Medical History Reviewed: Historical Data, Nursing Documentation, Vital Signs Vital Signs: Last Vital Signs Temp 98.3 F 07/08/18 20:58 Pulse 78 07/08/18 20:58 Resp 18 07/08/18 20:58 BP 129/72 07/08/18 20:58 Pulse Ox 99 07/08/18 20:58 - Medical History PMH: No Chronic Diseases Denies: HIV, Chronic Kidney Disease - Surgical History Surgical History: - Family History Family History: States: Unknown Family Hx - Living Arrangements Living Arrangements: With Family - Social History Current smoker - smoking cessation education provided: No - Home Medications Home Medications: Ambulatory Orders Medication Instructions Recorded Gabapentin [Neurontin] 1 cap PO TID PRN #1 cap 06/20/17 Magnesium Oxide [Mag-Ox] 400 mg PO BID #60 tab 06/20/17 Nitrofurantoin Macrocrystals 100 mg PO BID #14 cap 02/16/18 [Macrobid] predniSONE [predniSONE Tab] 20 mg PO DAILY #12 tab 07/08/18 - Allergies Allergies/Adverse Reactions: Allergies Allergy/AdvReac Type Severity Reaction Status Date / Time Penicillins Allergy RASH Verified 02/16/18 22:17 Review of Systems ROS Statement: Except As Marked, All Systems Reviewed And Found Negative Constitutional: Negative for: Fever, Chills ENT: Positive for: Nose Discharge, Throat Pain. Negative for: Ear Pain, Ear Discharge, Throat Swelling Cardiovascular: Negative for: Chest Pain, Palpitations Respiratory: Negative for: Cough, Shortness of Breath Musculoskeletal: Negative for: Foot Pain Skin: Positive for: Rash Physical Exam - Reviewed Nursing Documentation Reviewed: Yes Vital Signs Reviewed: Yes - Physical Exam Appears: Positive for: Well, Non-toxic, No Acute Distress Head Exam: Positive for: ATRAUMATIC, NORMAL INSPECTION, NORMOCEPHALIC Skin: Positive for: Warm, Rash (Erythematous rash on the neck and UE, (+) blanching). Negative for: Normal Color Eye Exam: Positive for: Normal appearance ENT: Positive for: Normal ENT Inspection, Nasal Congestion. Negative for: Pharynx Is, Pharyngeal Erythema, Tonsillar Exudate, Tonsillar Swelling Neck: Positive for: Normal, Painless ROM Cardiovascular/Chest: Positive for: Regular Rate, Rhythm Respiratory: Positive for: CNT, Normal Breath Sounds Gastrointestinal/Abdominal: Positive for: Normal Exam, Soft Back: Positive for: Normal Inspection Extremity: Positive for: Normal ROM Neurologic/Psych: Positive for: Alert, Oriented - ECG O2 Sat by Pulse Oximetry: 99 Pulse Ox Interpretation: Normal Disposition - Clinical Impression Clinical Impression: Rash, Viral pharyngitis - Patient ED Disposition Is Patient to be Admitted: No Counseled Patient/Family Regarding: Diagnosis, Need For Followup - Disposition Disposition: Routine/Home Disposition Time: 22:10 Condition: GOOD Prescriptions: predniSONE [predniSONE Tab] 20 mg PO DAILY #12 tab Instructions: Viral Pharyngitis, Skin Rash Print Language: GEORGIAN
== END 2018-07-08 22:40 | disposition home or self-care (01) ==
LOC: H.ER 20:24
DX: R21 Rash and other nonspecific skin eruption (principal); J02.9 Acute pharyngitis, unspecified; Z88.0 Allergy status to penicillin